=== PATIENT | male | born 1995 | race Caucasian/White ===

== ENCOUNTER 2016-08-04 08:11 | Emergency (ER) | payer OTHER ==
[~2016-08-04] VITALS: Ht 188 cm; Wt 92.6 kg
[~2016-08-04 08:11] MED LIST: NOHOMEMEDS
[2016-08-04 08:15] VITALS: BP 133/91
[2016-08-04] MEDS ORDERED: TYLENOL WITH C1 EACH PO (09:29)
== END 2016-08-04 10:28 | disposition home or self-care (01) ==
LOC: EME 08:11
PROC: 2W3CX1Z Immobilization of Right Lower Arm using Splint (ICD-10-PCS; principal; 2016-08-04)
DX: S50.01XA Contusion of right elbow, initial encounter (principal); M79.631 Pain in right forearm; M25.531 Pain in right wrist; V19.3XXA Pedal cyclist (driver) (passenger) injured in unspecified nontraffic accident, initial encounter
CPT/HCPCS: 73080; 73090; 73110; 99281; 99284